=== PATIENT | male | born 1980 | race Caucasian/White ===

== ENCOUNTER 2019-03-11 19:32 | Emergency (ER) | payer SELFPAY ==
[~2019-03-11] VITALS: Ht 167.6 cm; Wt 88.2 kg
[2019-03-11 19:39] VITALS: Ht 167.6 cm; Wt 88.2 kg
[2019-03-11] MEDS ORDERED: VOLTAREN75 MG PO (21:02)
[2019-03-11] MEDS ORDERED: BACLOFEN20 M1 PO (21:02)
[2019-03-11 22:25] VITALS: BP 138/78
== END 2019-03-11 22:26 | disposition home or self-care (01) ==
LOC: D.ER 19:32
DX: S89.92XA Unspecified injury of left lower leg, initial encounter (principal); X58.XXXA Exposure to other specified factors, initial encounter; Y93.89 Activity, other specified; Y92.89 Other specified places as the place of occurrence of the external cause